=== PATIENT | male | born 1975 | race Caucasian/White ===

== ENCOUNTER 2017-10-10 11:06 | Emergency (ER) | payer OTHER ==
[2017-10-10 11:15] VITALS: RESP 18
--- NOTE | 2017-10-10 13:05 | ED ---
General Adult HPI - General Chief complaint: Psychiatric Symptoms Stated complaint: mental health Time Seen by Provider: 10/10/17 11:46 Source: patient, family, RN notes reviewed, old records reviewed Mode of arrival: ambulatory Limitations: no limitations - History of Present Illness Initial comments: 22-year-old male to the ER today. Patient presents today for evaluation regards to psychiatric evaluation. Patient is having anger management issues and confrontational issues with family, involving [employer]. This report is been filed. Patient still remains angry displacement 3 days. Patient brought in today for reevaluation regarding anger issues. - Related Data Home Medications Medication Instructions Recorded Confirmed Lurasidone HCl [Latuda] 60 mg PO HS 10/10/17 10/10/17 traZODone HCL [TraZODone HCl] 50 mg PO HS 10/10/17 10/10/17 Allergies Allergy/AdvReac Type Severity Reaction Status Date / Time amoxicillin Allergy Rash/Hives Verified 10/10/17 11:15 Review of Systems ROS Statement: Those systems with pertinent positive or pertinent negative responses have been documented in the HPI. ROS Other: All systems not noted in ROS Statement are negative. Past Medical History Additional Past Medical History / Comment(s): Ventrical valve defect History of Any Multi-Drug Resistant Organisms: None Reported Additional Past Surgical History / Comment(s): eye surgery Past Psychological History: ADD/ADHD, Depression Smoking Status: Never smoker Past Alcohol Use History: None Reported Past Drug Use History: None Reported General Exam - General Exam Comments Initial Comments: Patient does have poison sonya rash to right wrist Limitations: no limitations General appearance: alert, in no apparent distress Head exam: Present: atraumatic, normocephalic, normal inspection Eye exam: Present: normal appearance, PERRL, EOMI. Absent: scleral icterus, conjunctival injection, periorbital swelling ENT exam: Present: normal exam, mucous membranes moist Neck exam: Present: normal inspection. Absent: tenderness, meningismus, lymphadenopathy Respiratory exam: Present: normal lung sounds bilaterally. Absent: respiratory distress, wheezes, rales, rhonchi, stridor Cardiovascular Exam: Present: regular rate, normal rhythm, normal heart sounds. Absent: systolic murmur, diastolic murmur, rubs, gallop, clicks GI/Abdominal exam: Present: soft, normal bowel sounds. Absent: distended, tenderness, guarding, rebound, rigid Extremities exam: Present: normal inspection, full ROM, normal capillary refill. Absent: tenderness, pedal edema, joint swelling, calf tenderness Back exam: Present: normal inspection Neurological exam: Present: alert, oriented X3, CN II-XII intact Psychiatric exam: Present: normal affect, normal mood Skin exam: Present: warm, dry, intact, normal color. Absent: rash Course Vital Signs 10/10/17 11:11 Temperature 98.4 F Pulse Rate 80 Respiratory 18 Rate Blood Pressure 166/84 O2 Sat by Pulse 97 Oximetry - Reevaluation(s) Reevaluation #1: 10/10/17 13:05 Patient is medically clear for psychiatric evaluation Medical Decision Making - Medical Decision Making 42 male the ER for evaluation for anger issues, and management. Patient is stable not homicidal or suicidal. Patient has good will control currently seen evaluated with psychiatry, will be discharged home Disposition Clinical Impression: Adjustment reaction, Anger reaction Disposition: HOME SELF-CARE Condition: Fair Instructions: Conduct Disorder (ED) Is patient prescribed a controlled substance at d/c from ED?: No Referrals: None,Stated [Primary Care Provider] - 1-2 days
[2017-10-10] MEDS ORDERED: predniSONE 20 MG TAB PO STA (13:19)
[2017-10-10] MEDS ORDERED: LORazepam 1 MG TAB PO STA (13:19)
[2017-10-10 13:27] VITALS: BP 126/68; PULSE 74; TEMP 97.5
[2017-10-10 13:29] LABS: Amphetamine Screen,Urine Not Detected (NotDetected); Barbiturate Screen,Urine Not Detected (NotDetected); Benzodiazepines Screen,Urine Not Detected (NotDetected); Cocaine Screen,Urine Not Detected (NotDetected); Methadone Screen, Urine Not Detected (NotDetected); Opiate Screen,Urine Not Detected (NotDetected); Oxycodone Screen, Urine Not Detected (NotDetected); Phencyclidine Screen,Urine Not Detected (NotDetected); Tricyclic Antidepressant,Urine Not Detected (NotDetected); Urn Cannabinoid Scrn Not Detected (NotDetected)
== END 2017-10-10 13:31 | disposition home or self-care (01) ==
LOC: EC 11:06
DX: F43.20 Adjustment disorder, unspecified (principal); R45.4 Irritability and anger; F32.9 Major depressive disorder, single episode, unspecified; Z79.899 Other long term (current) drug therapy; Z88.0 Allergy status to penicillin
CPT/HCPCS: 82075; 80306; 99284; J7512